=== PATIENT | male | born 1960 | race Caucasian/White ===

== ENCOUNTER 2022-11-27 10:23 | Inpatient (IN) | payer MEDICARE, BC ==
[2022-11-27] MEDS ORDERED: traMADol 50 MG Tab PO PRN (15:35)
[2022-11-27] MEDS ORDERED: Bisacodyl 10 MG Supp RECTAL PRN (15:35)
[2022-11-27] MEDS ORDERED: Polyethylene Glycol 3350 Powder 17 GM Packet PO PRN (15:35)
[2022-11-27] MEDS ORDERED: Nitroglycerin 0.4 MG Tab.SL SL PRN (15:35)
[2022-11-27] MEDS ORDERED: Acetaminophen 325 MG Tab PO PRN (16:00)
[2022-11-27] MEDS: Acetaminophen/HYDROcodone 325-5 MG Tab PO PRN ×2 (16:12→20:20)
[2022-11-27] MEDS ORDERED: Glucagon,Human Recombinant 1 MG Vial IM PRN (16:21)
[2022-11-27] MEDS ORDERED: 50% Dextrose in Water 50 ML Syringe IVPUSH PRN (16:21)
[2022-11-27] MEDS: metFORMIN 500 MG Tab PO SCH (17:28)
[2022-11-27] MEDS: Metoprolol Tartrate 25 MG Tab PO SCH (17:35)
[2022-11-27] MEDS ORDERED: Insulin Lispro 100 Units/ML 3 ML Vial SUBCUT SCH (18:00)
[2022-11-27] MEDS: Rosuvastatin 10 MG Tab PO SCH (20:19)
[2022-11-27] MEDS: Cyclobenzaprine 10 MG Tab PO SCH (20:19)
[2022-11-27] MEDS: Gabapentin 300 MG Cap PO SCH (20:19)
[2022-11-27] MEDS: Insulin Lispro 100 Units/ML 3 ML Vial SUBCUT SCH (21:47)
[2022-11-28] MEDS: Acetaminophen/HYDROcodone 325-5 MG Tab PO PRN ×3 (07:17→19:25)
[2022-11-28] MEDS: Gabapentin 300 MG Cap PO SCH ×2 (08:29→19:26)
[2022-11-28] MEDS: Cyclobenzaprine 10 MG Tab PO SCH ×3 (08:29→19:27)
[2022-11-28] MEDS: Glimepiride 2 MG Tab PO SCH (08:29)
[2022-11-28] MEDS: Clopidogrel 75 MG Tab PO SCH (08:29)
[2022-11-28] MEDS: Tamsulosin 0.4 MG Cap.ER PO SCH (08:29)
[2022-11-28] MEDS: Aspirin 81 MG Tab.EC PO SCH (08:29)
[2022-11-28] MEDS: metFORMIN 500 MG Tab PO SCH ×2 (08:30→17:22)
[2022-11-28] MEDS: Metoprolol Tartrate 25 MG Tab PO SCH ×2 (08:30→17:22)
[2022-11-28] MEDS: Insulin Lispro 100 Units/ML 3 ML Vial SUBCUT SCH ×4 (08:37→21:21)
[2022-11-28] MEDS: ADDERALL 20 MG PO SCH (19:27)
[2022-11-28] MEDS: Rosuvastatin 10 MG Tab PO SCH (19:27)
[2022-11-28] MEDS ORDERED: Patient's Own Medication 1 Each PO SCH (19:45)
[2022-11-29] MEDS: Acetaminophen/HYDROcodone 325-5 MG Tab PO PRN ×5 (02:58→22:30)
[2022-11-29] MEDS: ADDERALL 20 MG PO SCH ×2 (07:58→14:54)
[2022-11-29] MEDS: Cyclobenzaprine 10 MG Tab PO SCH ×3 (08:00→20:14)
[2022-11-29] MEDS: Tamsulosin 0.4 MG Cap.ER PO SCH (08:01)
[2022-11-29] MEDS: metFORMIN 500 MG Tab PO SCH ×2 (08:01→17:15)
[2022-11-29] MEDS: Gabapentin 300 MG Cap PO SCH ×2 (08:02→20:15)
[2022-11-29] MEDS: Glimepiride 2 MG Tab PO SCH (08:02)
[2022-11-29] MEDS: Clopidogrel 75 MG Tab PO SCH (08:02)
[2022-11-29] MEDS: Metoprolol Tartrate 25 MG Tab PO SCH ×2 (08:03→17:17)
[2022-11-29] MEDS: Aspirin 81 MG Tab.EC PO SCH (08:03)
[2022-11-29] MEDS: Insulin Lispro 100 Units/ML 3 ML Vial SUBCUT SCH ×4 (08:09→20:12)
[2022-11-29] MEDS: Rosuvastatin 10 MG Tab PO SCH (20:15)
[2022-11-30] MEDS: Acetaminophen/HYDROcodone 325-5 MG Tab PO PRN ×4 (03:06→19:46)
[2022-11-30] MEDS: Glimepiride 2 MG Tab PO SCH (08:08)
[2022-11-30] MEDS: Cyclobenzaprine 10 MG Tab PO SCH ×3 (08:09→19:46)
[2022-11-30] MEDS: Tamsulosin 0.4 MG Cap.ER PO SCH (08:10)
[2022-11-30] MEDS: metFORMIN 500 MG Tab PO SCH ×2 (08:10→17:18)
[2022-11-30] MEDS: Aspirin 81 MG Tab.EC PO SCH (08:10)
[2022-11-30] MEDS: Clopidogrel 75 MG Tab PO SCH (08:12)
[2022-11-30] MEDS: Gabapentin 300 MG Cap PO SCH ×2 (08:12→19:46)
[2022-11-30] MEDS: Metoprolol Tartrate 25 MG Tab PO SCH ×2 (08:12→17:18)
[2022-11-30] MEDS: ADDERALL 20 MG PO SCH ×2 (08:18→14:14)
[2022-11-30] MEDS: Insulin Lispro 100 Units/ML 3 ML Vial SUBCUT SCH ×4 (08:19→20:51)
[2022-11-30] MEDS: Rosuvastatin 10 MG Tab PO SCH (19:46)
[2022-12-01] MEDS: Acetaminophen/HYDROcodone 325-5 MG Tab PO PRN ×4 (00:18→17:52)
[2022-12-01] MEDS: metFORMIN 500 MG Tab PO SCH ×2 (08:06→17:52)
[2022-12-01] MEDS: Gabapentin 300 MG Cap PO SCH ×2 (08:06→20:11)
[2022-12-01] MEDS: Aspirin 81 MG Tab.EC PO SCH (08:06)
[2022-12-01] MEDS: Glimepiride 2 MG Tab PO SCH (08:06)
[2022-12-01] MEDS: Cyclobenzaprine 10 MG Tab PO SCH ×3 (08:07→20:10)
[2022-12-01] MEDS: Tamsulosin 0.4 MG Cap.ER PO SCH (08:08)
[2022-12-01] MEDS: Clopidogrel 75 MG Tab PO SCH (08:08)
[2022-12-01] MEDS: Insulin Lispro 100 Units/ML 3 ML Vial SUBCUT SCH ×4 (08:09→20:08)
[2022-12-01] MEDS: Metoprolol Tartrate 25 MG Tab PO SCH ×2 (08:10→17:56)
[2022-12-01] MEDS: ADDERALL 20 MG PO SCH ×2 (08:20→14:27)
[2022-12-01] MEDS: Rosuvastatin 10 MG Tab PO SCH (20:11)
[2022-12-02] MEDS: Acetaminophen/HYDROcodone 325-5 MG Tab PO PRN ×4 (00:56→22:46)
[2022-12-02] MEDS: Glimepiride 2 MG Tab PO SCH (07:50)
[2022-12-02] MEDS: ADDERALL 20 MG PO SCH ×2 (07:50→13:49)
[2022-12-02] MEDS: Cyclobenzaprine 10 MG Tab PO SCH ×3 (07:51→19:29)
[2022-12-02] MEDS: metFORMIN 500 MG Tab PO SCH ×2 (07:52→17:08)
[2022-12-02] MEDS: Tamsulosin 0.4 MG Cap.ER PO SCH (07:52)
[2022-12-02] MEDS: Aspirin 81 MG Tab.EC PO SCH (07:53)
[2022-12-02] MEDS: Metoprolol Tartrate 25 MG Tab PO SCH ×2 (07:53→17:09)
[2022-12-02] MEDS: Clopidogrel 75 MG Tab PO SCH (07:54)
[2022-12-02] MEDS: Gabapentin 300 MG Cap PO SCH ×2 (07:54→19:29)
[2022-12-02] MEDS: Insulin Lispro 100 Units/ML 3 ML Vial SUBCUT SCH ×4 (08:34→20:59)
[2022-12-02] MEDS: Rosuvastatin 10 MG Tab PO SCH (19:29)
[2022-12-03] MEDS: Acetaminophen 325 MG Tab PO PRN ×3 (02:28→20:29)
[2022-12-03] MEDS: Glimepiride 2 MG Tab PO SCH (07:20)
[2022-12-03] MEDS: Tamsulosin 0.4 MG Cap.ER PO SCH (07:21)
[2022-12-03] MEDS: Aspirin 81 MG Tab.EC PO SCH (07:21)
[2022-12-03] MEDS: metFORMIN 500 MG Tab PO SCH ×2 (07:21→17:16)
[2022-12-03] MEDS: Cyclobenzaprine 10 MG Tab PO SCH ×3 (07:22→19:14)
[2022-12-03] MEDS: Metoprolol Tartrate 25 MG Tab PO SCH ×2 (07:22→17:12)
[2022-12-03] MEDS: Gabapentin 300 MG Cap PO SCH ×2 (07:29→19:14)
[2022-12-03] MEDS: ADDERALL 20 MG PO SCH ×2 (07:30→14:05)
[2022-12-03] MEDS: Clopidogrel 75 MG Tab PO SCH (07:30)
[2022-12-03 07:42] LABS: ANION GAP 9.3 meq/L (7-15)
[2022-12-03] MEDS: Insulin Lispro 100 Units/ML 3 ML Vial SUBCUT SCH ×4 (07:51→20:31)
[2022-12-03] MEDS ORDERED: cefTRIAXone 1 GM in Sodium Chloride 0.9% 100 ML IV SCH (10:00)
[2022-12-03] MEDS: Acetaminophen/HYDROcodone 325-5 MG Tab PO PRN ×2 (10:11→17:25)
[2022-12-03] MEDS: Sulfamethoxazole/Trimethoprim 800-160 MG Tab PO SCH ×2 (10:12→17:17)
[2022-12-03 10:27] LABS: BARBITURATE SCREEN,URINE NEGATIVE (NEGATIVE); BENZODIAZEPINES SCREEN,URINE NEGATIVE (NEGATIVE); EDDP,URINE SCREEN NEGATIVE (NEGATIVE); TCA SCREEN,URINE POSITIVE (NEGATIVE); THC SCREEN,URINE 50 NG/ML NEGATIVE (NEGATIVE)
[2022-12-03 10:28] LABS: BUPRENORPHINE SCREEN,URINE NEGATIVE (NEGATIVE)
[2022-12-03] MEDS: Magnesium Oxide 400 MG Tab PO SCH (11:59)
[2022-12-03] MEDS: Rosuvastatin 10 MG Tab PO SCH (19:14)
[2022-12-04] MEDS: Acetaminophen/HYDROcodone 325-5 MG Tab PO PRN ×4 (01:46→19:41)
[2022-12-04] MEDS: metFORMIN 500 MG Tab PO SCH ×2 (07:50→17:34)
[2022-12-04] MEDS: Metoprolol Tartrate 25 MG Tab PO SCH ×2 (07:51→17:32)
[2022-12-04] MEDS: Magnesium Oxide 400 MG Tab PO SCH (07:52)
[2022-12-04] MEDS: Tamsulosin 0.4 MG Cap.ER PO SCH (07:53)
[2022-12-04] MEDS: Clopidogrel 75 MG Tab PO SCH (07:53)
[2022-12-04] MEDS: Cyclobenzaprine 10 MG Tab PO SCH ×3 (07:54→19:41)
[2022-12-04] MEDS: Aspirin 81 MG Tab.EC PO SCH (07:55)
[2022-12-04] MEDS: Sulfamethoxazole/Trimethoprim 800-160 MG Tab PO SCH ×2 (07:56→17:35)
[2022-12-04] MEDS: Glimepiride 2 MG Tab PO SCH (07:57)
[2022-12-04] MEDS: Insulin Lispro 100 Units/ML 3 ML Vial SUBCUT SCH ×4 (08:03→21:23)
[2022-12-04] MEDS: Gabapentin 300 MG Cap PO SCH ×2 (08:03→19:41)
[2022-12-04] MEDS: ADDERALL 20 MG PO SCH ×2 (08:04→14:05)
[2022-12-04] MEDS: Acetaminophen 325 MG Tab PO PRN ×2 (09:21→23:35)
[2022-12-04] MEDS: Rosuvastatin 10 MG Tab PO SCH (19:41)
[2022-12-05] MEDS: Acetaminophen/HYDROcodone 325-5 MG Tab PO PRN ×2 (02:03→07:20)
[2022-12-05] MEDS: Insulin Lispro 100 Units/ML 3 ML Vial SUBCUT SCH ×3 (07:41→17:51)
[2022-12-05] MEDS: Tamsulosin 0.4 MG Cap.ER PO SCH (07:53)
[2022-12-05] MEDS: Aspirin 81 MG Tab.EC PO SCH (07:53)
[2022-12-05] MEDS: Magnesium Oxide 400 MG Tab PO SCH (07:53)
[2022-12-05] MEDS: Cyclobenzaprine 10 MG Tab PO SCH ×3 (07:53→20:48)
[2022-12-05] MEDS: Glimepiride 2 MG Tab PO SCH (07:54)
[2022-12-05] MEDS: Metoprolol Tartrate 25 MG Tab PO SCH ×2 (07:54→17:51)
[2022-12-05] MEDS: Sulfamethoxazole/Trimethoprim 800-160 MG Tab PO SCH (07:54)
[2022-12-05] MEDS: Clopidogrel 75 MG Tab PO SCH (07:55)
[2022-12-05] MEDS: metFORMIN 500 MG Tab PO SCH ×2 (07:55→17:53)
[2022-12-05] MEDS: Gabapentin 300 MG Cap PO SCH ×2 (08:20→20:49)
[2022-12-05] MEDS: ADDERALL 20 MG PO SCH ×2 (08:20→15:48)
[2022-12-05] MEDS: traMADol 50 MG Tab PO PRN (13:05)
[2022-12-05] MEDS: Amoxicillin 250 MG Cap PO SCH ×2 (15:45→20:48)
[2022-12-05] MEDS: Rosuvastatin 10 MG Tab PO SCH (20:49)
[2022-12-06] MEDS: Cyclobenzaprine 10 MG Tab PO SCH ×3 (08:47→20:12)
[2022-12-06] MEDS: Aspirin 81 MG Tab.EC PO SCH (08:47)
[2022-12-06] MEDS: Clopidogrel 75 MG Tab PO SCH (08:52)
[2022-12-06] MEDS: Magnesium Oxide 400 MG Tab PO SCH (08:52)
[2022-12-06] MEDS: Gabapentin 300 MG Cap PO SCH ×2 (08:52→20:12)
[2022-12-06] MEDS: Tamsulosin 0.4 MG Cap.ER PO SCH (08:52)
[2022-12-06] MEDS: Metoprolol Tartrate 25 MG Tab PO SCH ×2 (08:52→18:24)
[2022-12-06] MEDS: Amoxicillin 250 MG Cap PO SCH ×3 (08:53→20:12)
[2022-12-06] MEDS: Glimepiride 2 MG Tab PO SCH (08:53)
[2022-12-06] MEDS: metFORMIN 500 MG Tab PO SCH ×2 (08:53→18:24)
[2022-12-06] MEDS: ADDERALL 20 MG PO SCH ×2 (10:02→16:52)
[2022-12-06] MEDS: traMADol 50 MG Tab PO PRN (13:33)
[2022-12-06] MEDS: Acetaminophen 325 MG Tab PO PRN ×2 (16:52→22:03)
[2022-12-06] MEDS: Thiamine 100 MG Tab PO SCH (20:12)
[2022-12-06] MEDS: Rosuvastatin 10 MG Tab PO SCH (20:12)
[2022-12-07] MEDS: Acetaminophen 325 MG Tab PO PRN (03:15)
[2022-12-07] MEDS: Cyclobenzaprine 10 MG Tab PO SCH ×3 (08:34→19:53)
[2022-12-07] MEDS: Amoxicillin 250 MG Cap PO SCH ×3 (08:34→19:53)
[2022-12-07] MEDS: Metoprolol Tartrate 25 MG Tab PO SCH ×2 (08:35→17:58)
[2022-12-07] MEDS: Magnesium Oxide 400 MG Tab PO SCH (08:35)
[2022-12-07] MEDS: metFORMIN 500 MG Tab PO SCH ×2 (08:35→17:57)
[2022-12-07] MEDS: Glimepiride 2 MG Tab PO SCH (08:35)
[2022-12-07] MEDS: Clopidogrel 75 MG Tab PO SCH (08:35)
[2022-12-07] MEDS: Tamsulosin 0.4 MG Cap.ER PO SCH (08:35)
[2022-12-07] MEDS: Aspirin 81 MG Tab.EC PO SCH (08:35)
[2022-12-07] MEDS: Gabapentin 300 MG Cap PO SCH ×2 (08:35→19:53)
[2022-12-07] MEDS: ADDERALL 20 MG PO SCH ×2 (09:00→14:00)
[2022-12-07] MEDS: traMADol 50 MG Tab PO PRN ×2 (12:48→21:58)
[2022-12-07] MEDS: Thiamine 100 MG Tab PO SCH (19:53)
[2022-12-07] MEDS: Rosuvastatin 10 MG Tab PO SCH (19:54)
[2022-12-08] MEDS: Acetaminophen 325 MG Tab PO PRN ×4 (00:22→22:06)
[2022-12-08] MEDS: traMADol 50 MG Tab PO PRN ×2 (04:46→14:03)
[2022-12-08 08:05] LABS: ANION GAP 7.5 meq/L (7-15)
[2022-12-08] MEDS: Amoxicillin 250 MG Cap PO SCH ×3 (08:38→20:20)
[2022-12-08] MEDS: Glimepiride 2 MG Tab PO SCH (08:38)
[2022-12-08] MEDS: Magnesium Oxide 400 MG Tab PO SCH (08:38)
[2022-12-08] MEDS: metFORMIN 500 MG Tab PO SCH ×2 (08:38→17:20)
[2022-12-08] MEDS: Clopidogrel 75 MG Tab PO SCH (08:39)
[2022-12-08] MEDS: Tamsulosin 0.4 MG Cap.ER PO SCH (08:39)
[2022-12-08] MEDS: Aspirin 81 MG Tab.EC PO SCH (08:39)
[2022-12-08] MEDS: Gabapentin 300 MG Cap PO SCH ×2 (08:39→20:20)
[2022-12-08] MEDS: Cyclobenzaprine 10 MG Tab PO SCH ×3 (08:39→20:20)
[2022-12-08] MEDS: Metoprolol Tartrate 25 MG Tab PO SCH ×2 (08:40→17:20)
[2022-12-08] MEDS: ADDERALL 20 MG PO SCH ×2 (08:53→15:49)
[2022-12-08] MEDS: Rosuvastatin 10 MG Tab PO SCH (20:20)
[2022-12-08] MEDS: Thiamine 100 MG Tab PO SCH (20:21)
[2022-12-09] MEDS: traMADol 50 MG Tab PO PRN (07:02)
[2022-12-09] MEDS: ADDERALL 20 MG PO SCH (07:31)
[2022-12-09] MEDS: Amoxicillin 250 MG Cap PO SCH (07:32)
[2022-12-09] MEDS: Gabapentin 300 MG Cap PO SCH (07:32)
[2022-12-09] MEDS: Cyclobenzaprine 10 MG Tab PO SCH (07:33)
[2022-12-09] MEDS: Magnesium Oxide 400 MG Tab PO SCH (07:33)
[2022-12-09] MEDS: metFORMIN 500 MG Tab PO SCH (07:34)
[2022-12-09] MEDS: Tamsulosin 0.4 MG Cap.ER PO SCH (07:34)
[2022-12-09] MEDS: Glimepiride 2 MG Tab PO SCH (07:34)
[2022-12-09] MEDS: Metoprolol Tartrate 25 MG Tab PO SCH (07:34)
[2022-12-09 07:35] VITALS: BP 133/85; PULSE 88
[2022-12-09] MEDS: Aspirin 81 MG Tab.EC PO SCH (07:35)
[2022-12-09] MEDS: Clopidogrel 75 MG Tab PO SCH (07:35)
== END 2022-12-09 09:03 | disposition home or self-care (01) | DRG 560 ==
LOC: LL.MS 14:20
PROVIDERS: ADMIT Hospitalist; ATTEND Hospitalist
DX: S12.101D Unspecified nondisplaced fracture of second cervical vertebra, subsequent encounter for fracture with routine healing (principal); N39.0 Urinary tract infection, site not specified; R44.3 Hallucinations, unspecified; E78.00 Pure hypercholesterolemia, unspecified; H54.7 Unspecified visual loss; I10 Essential (primary) hypertension; F32.A Depression, unspecified; E66.9 Obesity, unspecified; T40.605A Adverse effect of unspecified narcotics, initial encounter; R33.9 Retention of urine, unspecified; Z91.040 Latex allergy status; Z88.5 Allergy status to narcotic agent; Z91.030 Bee allergy status; Z79.84 Long term (current) use of oral hypoglycemic drugs; Z79.899 Other long term (current) drug therapy; Z90.49 Acquired absence of other specified parts of digestive tract; Z68.33 Body mass index [BMI] 33.0-33.9, adult
CPT/HCPCS: 36415; 70450; 80048; 80053; 80305-QW; 80307; 81001; 81003; 82947; 83735; 84100; 84443; 85025; 87086; 87088; 87186; 97110-GP; 97162-GP; 97165-GO; 97530-GO; 97530-GP; 97535-GO; 97542-GO; 99306; 99307; 99315; A9270-GY; J1815-GY